=== PATIENT | male | born 1955 | race American Indian/Alaskan Native ===

== ENCOUNTER 2016-10-06 09:11 | Outpatient (CLI) | payer OTHER ==
--- NOTE | 2016-10-06 11:07 | Ultrasound Report ---
ULTRASOUND RENAL INDICATION: Chronic kidney disease. COMPARISON: None similar at this institution. FINDINGS: Renal sonography suggests top normal renal cortical echogenicity. Grossly preserved contours. No hydronephrosis. RIGHT KIDNEY measures 9.2 x 5.3 x 5.7 cm with cortical thickness of 1.7 cm. LEFT KIDNEY estimated at 10.9 x 5.3 x 6.5 cm with cortical thickness of 1.3 cm. A 1.9 x 1.6 cm partly exophytic left lower renal cortical cyst, image 23. URINARY BLADDER suboptimally distended and assessed. CONCLUSION: No acute renal sonographic abnormality with a small left renal cyst. Please correlate. Thank you for the opportunity to participate in this patient's care.
== END 2016-10-06 09:12 | disposition home or self-care (01) ==
LOC: US 09:11
PROVIDERS: ATTEND Internal Medicine Nephrology
DX: N18.3 Chronic kidney disease, stage 3 (moderate) (principal); N28.1 Cyst of kidney, acquired; N32.89 Other specified disorders of bladder
CPT/HCPCS: 76770

== ENCOUNTER 2017-12-26 11:01 | Outpatient (CLI) | payer OTHER ==
--- NOTE | 2017-12-26 14:23 | Cat Scan Report ---
FINAL REPORT EXAM: CT ABDOMEN PELVIS WO CON HISTORY: ACUTE COLITIS, TECHNIQUE: CT of the abdomen and pelvis was performed without intravenous contrast. Reconstructions were included in the coronal and sagittal planes. PRIORS: None. FINDINGS: Lower thorax: The lung bases are clear. Mild coronary artery calcifications are seen. Liver: The liver is normal in attenuation. No intrahepatic biliary duct dilation. No focal hepatic lesions. Gallbladder/ biliary system: No cholelithiasis. The common bile duct appears nondilated. Spleen: No splenic lesions are seen. Pancreas: No pancreatic lesions are seen. No pancreatic duct dilation. Kidneys: There is a 1.6 centimeter simple left renal cyst is seen. No hydronephrosis. No renal or ureteral calcifications. Adrenal glands: No adrenal masses. Vasculature: The abdominal aorta is nondilated. Atherosclerotic calculi are seen in the abdominal aorta and branch vessels. Lymph nodes: No enlarged lymph nodes are seen in the abdomen or pelvis. Bowel, mesentery, peritoneum: No bowel obstruction. No free fluid or free air. The appendix is normal. Colonic diverticulosis is seen. No evidence of diverticulitis. No bowel wall thickening. No inflammatory changes are seen surrounding the colon. Urinary bladder: No filling defects are seen. Pelvis: Normal anatomy is noted. No masses. Abdominal wall: There is a small fat containing umbilical hernia. Areas of subcutaneous stranding along the anterior abdominal wall, likely the related to sites of injection. Bones: Degenerative changes are seen in the spine. IMPRESSION: 1. Colonic diverticulosis without evidence of diverticulitis. No evidence of acute colitis. 2. Simple left renal cyst. 3. Fat containing umbilical hernia. 4. Mild coronary artery calculi.
== END 2017-12-26 11:02 | disposition home or self-care (01) ==
LOC: CT 11:01
PROVIDERS: ATTEND Internal Medicine Gastroenterology
DX: K57.90 Diverticulosis of intestine, part unspecified, without perforation or abscess without bleeding (principal); N28.1 Cyst of kidney, acquired; K42.9 Umbilical hernia without obstruction or gangrene; I25.10 Atherosclerotic heart disease of native coronary artery without angina pectoris; M47.899 Other spondylosis, site unspecified
CPT/HCPCS: 36415; 74176; 82565; 84520